=== PATIENT | male | born 1960 | race Caucasian/White ===

== ENCOUNTER → 2017-11-07 | Day surgery (SDC) | payer BC ==
[~2017-11-07] MED LIST: ASPI81TA50 PO; IV RINGERS SOLUTION,LACTATED 1,000 ML IV SCH; LIDOCAINE 1% Multi-Dose 20 ML VIAL. ONE; LIDOCAINE 1% PF 2 ML VIAL. ID PRN; MULT1TAB52 PO; OMEP20CA9 PO; ONDANSETRON PF 4 MG/2 ML VIAL. IV PRN; PROPOFOL 10,000 MCG/ML (20ML) VIAL IV ONE; PROPOFOL 20 ML IV ONE
[2017-11-07 14:57] VITALS: BP 121/74
== END ==
LOC: SURG 11:26
PROVIDERS: ATTEND Internal Medicine Gastroenterology
DX: Z12.11 Encounter for screening for malignant neoplasm of colon (principal); Z80.0 Family history of malignant neoplasm of digestive organs; K63.89 Other specified diseases of intestine; K21.9 Gastro-esophageal reflux disease without esophagitis; Z87.39 Personal history of other diseases of the musculoskeletal system and connective tissue
CPT/HCPCS: 45378; J2704; J7120

== ENCOUNTER 2019-06-15 14:27 | Inpatient (IN) | payer BC ==
[~2019-06-15] VITALS: Ht 180.3 cm; Wt 93.2 kg
[~2019-06-15 14:27] MED LIST changes: -IOHEXOL 240 MG/ML 50ML VIAL. PO ONE; -IOHEXOL 300 MG/ML 75 ML VIAL. IV ONE; -OMEP40CA45 PO
[2019-06-15] MEDS: IV NORMAL SALINE 1,000ML 1,000 ML IV SCH (14:45)
[2019-06-15] MEDS ORDERED: ONDANSETRON PF 4 MG/2 ML VIAL. IVP PRN (14:45)
[2019-06-15] MEDS: MORPHINE SULFATE 4 MG/ML DISP.SYRIN. IV PRN ×2 (14:54→18:40)
[2019-06-15 14:59] LABS: BASO % 1 % (0-3); EOS % 0 % (0-3); HEMOGLOBIN 16.7 g/dL (13.0-17.5); LYMPH # 0.8 x10^3/uL (1.0-4.8); LYMPH % 8 % (24-48); MEAN CORPUSCULAR HEMOGLOBIN 30 pg (25-35); MEAN CORPUSCULAR HGB CONC 35 g/dL (31-37); MEAN CORPUSCULAR VOLUME 87 fL (79-100); MONO # 0.9 x10^3/uL (0.0-1.1); MONO % 9 % (0-9); NEUT # 8.1 x10^3uL (1.8-7.7); NEUT % 83 % (31-73); PLATELET COUNT 246 x10^3/uL (140-400); RED BLOOD COUNT 5.49 x10^6/uL (4.30-5.70); RED CELL DISTRIBUTION WIDTH 13.9 % (11.5-14.5); WHITE BLOOD COUNT 9.8 x10^3/uL (4.0-11.0)
[2019-06-15 15:04] VITALS: BP 118/81
[2019-06-15 15:11] LABS: ALBUMIN 3.8 g/dL (3.4-5.0); ALBUMIN/GLOBULIN RATIO 0.9 (1.0-1.7); CALCIUM 9.1 mg/dL (8.5-10.1); POTASSIUM 3.7 mmol/L (3.5-5.1); TOTAL BILIRUBIN 0.6 mg/dL (0.2-1.0); TOTAL PROTEIN 8.1 g/dL (6.4-8.2)
[2019-06-15 16:20] LABS: BACTERIA,URINE FEW /HPF (0-FEW); BILIRUBIN,URINE NEG (NEG); CLARITY,URINE CLEAR; COLOR,URINE YELLOW; GLUCOSE,URINE NEG (NEG); NITRITE,URINE NEG (NEG); RBC,URINE RARE /HPF (0-2); UROBILINOGEN,URINE 0.2 mg/dL (0.2 mg/dL)
[2019-06-15 17:11] VITALS: BP 115/72
--- NOTE | 2019-06-15 17:25 | NUR ---
The patient, DANYELLE CONLEY, 59 y/o, M admitted by BROCK VICTORIA MD, was given written information regarding hospital policies, unit procedures and contact persons. Valuables were checked and logged. Pt arrived via wheelchair after getting an outpatient CT scan, showed SBO. IV already in place. IV morphine and zofran given per MD orders. NG tube placed per order, pt immediately began vomiting and having output per NG tube NG tube placed. Placed on intermittent suction. Pt is alert and oriented x4. Complains of abdominal pain. Denies vomiting, but did have nausea last night. at bedside. Pt up independently. WCTM.
[2019-06-15] MEDS ORDERED: PROCHLORPERAZINE 10 MG/2 ML VIAL. IV PRN (18:30)
[2019-06-15] MEDS: PHENOL ORAL SPRAY 177ML BOTTLE. PO PRN (18:44)
[2019-06-15 23:20] VITALS: BP 99/58
[2019-06-16] MEDS: IV NORMAL SALINE 1,000ML 1,000 ML IV SCH ×3 (00:55→20:45)
[2019-06-16] MEDS: PHENOL ORAL SPRAY 177ML BOTTLE. PO PRN (05:07)
[2019-06-16 05:24] VITALS: BP 112/65
[2019-06-16 07:00] LABS: BASO # 0.1 x10^3/uL (0.0-0.2); BASO % 1 % (0-3); EOS # 0.1 x10^3/uL (0.0-0.7); EOS % 1 % (0-3); HEMATOCRIT 43.3 % (39.0-53.0); HEMOGLOBIN 14.8 g/dL (13.0-17.5); LYMPH # 1.2 x10^3/uL (1.0-4.8); LYMPH % 13 % (24-48); MEAN CORPUSCULAR HEMOGLOBIN 30 pg (25-35); MEAN CORPUSCULAR HGB CONC 34 g/dL (31-37); MEAN CORPUSCULAR VOLUME 88 fL (79-100); MONO # 1.1 x10^3/uL (0.0-1.1); MONO % 12 % (0-9); NEUT # 6.6 x10^3uL (1.8-7.7); NEUT % 73 % (31-73); PLATELET COUNT 227 x10^3/uL (140-400); RED CELL DISTRIBUTION WIDTH 13.9 % (11.5-14.5)
[2019-06-16 07:11] LABS: CALCIUM 8.5 mg/dL (8.5-10.1); POTASSIUM 3.7 mmol/L (3.5-5.1)
[2019-06-16] MEDS ORDERED: PANTOPRAZOLE 40 MG TABLET. PO SCH (07:30)
[2019-06-16] MEDS ORDERED: METOCLOPRAMIDE HCL 10 MG/2 ML VIAL. IVP ONE (09:15)
[2019-06-16] MEDS: MORPHINE SULFATE 4 MG/ML DISP.SYRIN. IV PRN ×2 (10:28→20:28)
[2019-06-16] MEDS ORDERED: ENOXAPARIN 40 MG/0.4 ML SYRINGE. SQ SCH (11:00)
[2019-06-16 11:10] VITALS: BP 110/54
--- NOTE | 2019-06-16 11:55 | PN ---
DATE: SUBJECTIVE: A 59-year-old gentleman came in with small-bowel obstruction released by CAT scan. He says he has had some small stools coming out. He has had no nausea or vomiting. Presently, he is feeling better overall. He is ambulatory. PHYSICAL EXAMINATION: VITAL SIGNS: 112/65, respiratory rate 16, pulse 86 and 98.5. GENERAL: The patient is alert and oriented. LUNGS: Diminished, but clear. CARDIOVASCULAR: Stable. ABDOMEN: Soft. He does have a ventral hernia. There are a few tickles of bowel sounds in there, so he is making fairly good situation there. EXTREMITIES: No clubbing, cyanosis, nor edema. NEUROLOGIC: Alert and oriented x 3. Speech fluent, spontaneous, appropriate. We will get a chest x-ray. He has been coughing just to make sure there is nothing in the lung thoracic area causing any problems down below. He has not had any previous surgeries as well. IMPRESSION: Small-bowel obstruction with improvement. PLAN: Continue NG tube in place, some IV medications and make sure that he continues to be monitored carefully. BROCK VICTORIA MD DR: SHWETHA/loyd JOB#: [id number] / [id number]
--- NOTE | 2019-06-16 12:31 | RAD ---
Examination: PORTABLE CHEST 1V History: Cough Comparison/Correlation: None Findings: Portable frontal view of chest was obtained. Enteric tube terminates within the stomach. Heart size normal. No pneumothorax. No definite infiltrate. Minimal left basilar linear atelectasis noted. Impression: No focal infiltrate. Electronically signed by: Antoine Matamoros MD (06/16/2019 12:28 PM) [facility]
[2019-06-16 13:40] LABS: GASTRIC OB PAT POSITIVE (NEG)
[2019-06-16 15:00] VITALS: BP 132/85
[2019-06-16 19:55] VITALS: BP 133/88
[2019-06-16 22:36] VITALS: BP 119/76
[2019-06-17] MEDS: IV NORMAL SALINE 1,000ML 1,000 ML IV SCH
[2019-06-17 06:06] VITALS: BP 135/89
[2019-06-17 07:30] LABS: CALCIUM 8.6 mg/dL (8.5-10.1); CREATININE 1.1 mg/dL (0.7-1.3); POTASSIUM 3.4 mmol/L (3.5-5.1)
[2019-06-17] MEDS ORDERED: PANTOPRAZOLE IV 40 MG VIAL. IVP SCH (07:30)
[2019-06-17 07:53] LABS: FECAL OB PT NEGATIVE (NEG)
--- NOTE | 2019-06-17 08:30 | NUR ---
Patient is alert and oriented x4. Denies nausea or pain. Is hoping to get NG tube out. NG output has slowed. Hypoactive bowel sounds on left side of abdomen. Heart tones irregular, placed tele on patient, pt SA. Dr Naranjo notified, EKG ordered. Held lovenox since gastric occult was positive. WCTM.
--- NOTE | 2019-06-17 09:39 | NUR ---
NG tube pulled, patient tolerated well. CLD diet started, pt informed to start slow. WCTM.
[2019-06-17 11:19] VITALS: BP 132/84
[2019-06-17] MEDS ORDERED: OMEP40CA45 PO (11:43)
--- NOTE | 2019-06-17 12:11 | NUR ---
Dr Naranjo wants to schedule outpatient upper GI with SBFT for tomorrow, pt is discharging today. No one here to schedule due to holiday. Dr Naranjo notified. Instructed to tell pt to remain NPO after midnight and have someone from here call in the morning to schedule. Facesheet and note given to Nursing [employer] to pass along to have this schedule tomorrow.
--- NOTE | 2019-06-17 12:22 | RAD ---
ACUTE ABDOMEN SERIES 06/17/2019 10:59 AM INDICATION: Small bowel obstruction COMPARISON: CT abdomen/pelvis 06/15/2019 TECHNIQUE: Single view of the chest, upright view of the abdomen and 2 supine views of the abdomen are provided. FINDINGS/ IMPRESSION: 1. There is no acute cardiac pulmonary process. Lungs are clear. Cardiac mediastinal silhouette is within normal limits. No pleural effusions, pulmonary vascular congestion or pneumothorax. Junk changes are noted at the right first costosternal articulation. 2. There is no free intraperitoneal air. Retained oral contrast is identified within the right colon. Distended small bowel loops are identified in the left upper quadrant abdomen presumed to represent jejunal bowel loops measuring up to 3.5 cm. Distal colon is decompressed. No pneumoperitoneum. Findings most favor small bowel obstruction secondary to enteritis, not significantly changed. Continued follow-up may be of benefit. 3. No suspicious osseous normality. Electronically signed by: Janice Alvarez MD (06/17/2019 12:19 PM) [facility]
--- NOTE | 2019-06-17 12:55 | NUR ---
Patient is discharging, agrees with discharge plan. Instructed to call at 0900 tomorrow if he has not heard about a time for his EGD. Pt given 1-S nursing station number. IV out, tele off.
--- NOTE | 2019-06-17 22:51 | EKG ---
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
--- NOTE | 2019-06-23 18:56 | DS ---
DATE OF DISCHARGE: 06/17/2019 HOSPITAL COURSE: The patient came in with severe abdominal pain. The patient was found to have a small-bowel obstruction. As a result of that, the patient was admitted to the hospital, obviously and monitored carefully. An NG tube was placed down and did get quite a bit of fluid back out of his intestine. However, the patient continued to make good progress. Consultation over the phone with surgery felt the patient would do best by just keeping the NG tube in place. The patient made good progress. The patient did have some gastric occult blood. He will be followed up by GI, Dr. Burger as an outpatient. The patient did have a clearing of the small-bowel obstruction. He had a bowel movement. He was able to eat and drink without any complication. He was discharged home for followup. IMPRESSION: Small-bowel obstruction, hematochezia. PLAN: As above. Continue to monitor the patient as an outpatient. He will stay on a very soft diet for now and then follow up with Dr. Burger as an outpatient. BROCK VICTORIA MD DR: SHWETHA/loyd JOB#: [id number] / [id number]
== END 2019-06-17 13:01 | disposition home or self-care (01) | DRG 389 ==
LOC: 1 SOUTH 14:27
PROVIDERS: ADMIT Family Medicine; ATTEND Family Medicine
PROC: 0D9670Z Drainage of Stomach with Drainage Device, Via Natural or Artificial Opening (ICD-10-PCS; principal; 2019-06-15)
DX: K56.609 Unspecified intestinal obstruction, unspecified as to partial versus complete obstruction (principal); K92.1 Melena; K21.9 Gastro-esophageal reflux disease without esophagitis; Z82.49 Family history of ischemic heart disease and other diseases of the circulatory system; Z80.0 Family history of malignant neoplasm of digestive organs
CPT/HCPCS: 36415; 71045; 74022; 80048; 80053; 81001; 82271; 82274; 85025; 93005; C9113; J0780; J1650; J2270; J2405; J2765; J7030

== ENCOUNTER → 2019-06-15 | Outpatient (CLI) | payer BC ==
[2017-11-07 14:57] VITALS: BP 121/74
[~2019-06-15] MED LIST changes: +IOHEXOL 240 MG/ML 50ML VIAL. PO ONE; +IOHEXOL 300 MG/ML 75 ML VIAL. IV ONE; -IV RINGERS SOLUTION,LACTATED 1,000 ML IV SCH; -LIDOCAINE 1% Multi-Dose 20 ML VIAL. ONE; -LIDOCAINE 1% PF 2 ML VIAL. ID PRN; +OMEP20CA16 PO; -OMEP20CA9 PO; +OMEP40CA45 PO; -ONDANSETRON PF 4 MG/2 ML VIAL. IV PRN; -PROPOFOL 10,000 MCG/ML (20ML) VIAL IV ONE; -PROPOFOL 20 ML IV ONE
--- NOTE | 2019-06-15 13:47 | RAD ---
CT scan of the abdomen and pelvis without and with contrast 06/15/2019 CLINICAL HISTORY: Abdominal pain and hematuria. Nausea and fever. Gastroesophageal reflux. TECHNIQUE: Contiguous, 5 mm axial sections were obtained through the abdomen and pelvis without and with use of intravenous contrast. Oral contrast was administered prior to imaging. 75 cc of Omnipaque 300 were administered intravenously during this examination. One or more of the following individualized dose reduction techniques were utilized for this study: 1. Automated exposure control. 2. Adjustment of the mA and/or kV according to patient size. 3. Use of iterative reconstruction technique. FINDINGS: Images through the lung bases are within normal limits. The unenhanced CT images demonstrate no renal, ureteral or bladder calculus. The liver, spleen, pancreas, and adrenal glands are within normal limits. Rounded low-attenuation lesions are seen involving both kidneys on the postcontrast images which demonstrate 3 mm to 8 mm in size. These likely represent cysts. The abdominal aorta tapers normally. The gallbladder is contracted. No free fluid or free air is seen within the abdomen. Air and stool are seen throughout the colon. The appendix is well-visualized and is within normal limits. Dilated fluid and air-filled mid/distal jejunal and proximal ileal loops are seen throughout the mid/lower abdomen. The mid/distal ileum is normal in caliber as is the colon. These findings are consistent with a small bowel obstruction. The transition point is not well-visualized on this study but appears to be within the right mid abdomen. Images through the pelvis demonstrate the urinary bladder distended with urine. The prostate gland is mildly enlarged likely related to BPH. No free fluid is seen. Degenerative changes are seen involving the lower thoracic and throughout the lumbar spine along with both hips. IMPRESSION: Findings are seen consistent with a small bowel obstruction. Electronically signed by: Keo Calix MD (06/15/2019 1:44 PM) [id number]
== END | disposition home or self-care (01) ==
LOC: CT 11:39
PROVIDERS: ATTEND Nurse Practitioner Adult Health
DX: R10.84 Generalized abdominal pain (principal); R10.33 Periumbilical pain; K21.9 Gastro-esophageal reflux disease without esophagitis
CPT/HCPCS: 74178; Q9966; Q9967

== ENCOUNTER → 2019-06-18 | Outpatient (CLI) | payer BC ==
[2019-06-17 11:19] VITALS: BP 132/84
[~2019-06-18] MED LIST changes: +OMEP40CA45 PO
--- NOTE | 2019-06-18 09:55 | RAD ---
2 views of the abdomen 06/18/2019 INDICATION: Evaluate for small bowel obstruction. Presence of enteric contrast. COMPARISON STUDY: CT the abdomen and pelvis June 15, 2019 Discussion: The bowel gas pattern is nonspecific and nonobstructive. Previously administered enteric contrast is seen in the transverse colon, and to a lesser degree in the rectum. No gross pneumoperitoneum. No acute osseous changes are seen. IMPRESSION: 1. Nonspecific nonobstructive bowel gas pattern 2. Residual enteric contrast in the transverse colon, and to a lesser degree the rectum Electronically signed by: Ethan Barrett MD (06/18/2019 9:52 AM) [id number]
== END | disposition home or self-care (01) ==
LOC: RAD 09:13
PROVIDERS: ATTEND Family Medicine
DX: K56.609 Unspecified intestinal obstruction, unspecified as to partial versus complete obstruction (principal)
CPT/HCPCS: 74018

== ENCOUNTER → 2019-06-19 | Outpatient (CLI) | payer BC ==
[2019-06-17 11:19] VITALS: BP 132/84
--- NOTE | 2019-06-19 14:35 | RAD ---
Double contrast upper GI study to include a small bowel follow-through 06/19/2019 CLINICAL HISTORY: History of partial small bowel obstruction. Abdominal pain. TECHNIQUE: A double contrast upper GI study was performed under fluoroscopic control. This was continued as a small bowel follow-through study which was performed under radiographic control. The total fluoroscopic time is 1.6 minutes. 6 digital spot radiographs were obtained. FINDINGS: Comparison is made to the patient's CT scan of the abdomen and pelvis dated 06/15/2019. An AP digital radiograph of the abdomen was obtained as a rail specialist. This demonstrates a nonobstructive bowel gas pattern. A moderate amount of stool is seen throughout the colon. No radiopaque calculus is seen. Degenerative changes are seen involving the lumbar spine. The mucosal pattern of the esophagus, stomach and duodenum is within normal limits. Esophageal motility is within normal limits. No area of ulceration is seen. There is a very small sliding hiatal hernia. No gastroesophageal reflux is noted. The mucosal pattern of the jejunum, ileum and terminal ileum is within normal limits. Mildly dilated mid/distal jejunal and proximal ileal loops are seen within the abdomen. This appears improved when compared to the patient's CT scan. The distal ileum is normal in caliber. The small bowel transit time is within normal limits. No transition point in the caliber of the bowel is visualized. The cecum is in its normal location within the right lower quadrant abdomen. No extrinsic mass effect upon the small bowel is seen. IMPRESSION: 1. Very small sliding hiatal hernia. 2. Mildly dilated mid/distal jejunal and proximal ileal loops are seen within the abdomen. This appears improved when compared to the patient's recent CT scan. No transition point in the caliber of the bowel is seen. The small bowel transit time is within normal limits. Electronically signed by: Keo Calix MD (06/19/2019 2:32 PM) [id number]
== END | disposition home or self-care (01) ==
LOC: DXRAD 08:03
PROVIDERS: ATTEND Family Medicine
DX: K44.9 Diaphragmatic hernia without obstruction or gangrene (principal)
CPT/HCPCS: 74245

== ENCOUNTER → 2019-10-16 | Outpatient (CLI) | payer BC ==
--- NOTE | 2019-10-16 08:56 | RAD ---
Examination: ABDOMEN LTD History: Diaphragmatic hernia. No obstruction. Comparison/Correlation: 05/19/2019 CT abdomen and pelvis without and with contrast Findings: Ultrasound examination of the epigastric, midabdomen was performed at the site of interest. Abdominal wall is unremarkable. No diaphragmatic hernia identified at this site. No herniated small bowel loops identified. No loculated collections. Incidental note is made of fatty infiltration of the liver. Impression: No evidence of diaphragmatic hernia on imaging of the epigastric region at the site of interest. If suspicion persists, further evaluation with CT examination would be recommended. Electronically signed by: Antoine Matamoros MD (10/16/2019 8:53 AM) [id number]
== END | disposition home or self-care (01) ==
LOC: US 07:41
PROVIDERS: ATTEND Nurse Practitioner Adult Health
DX: K76.0 Fatty (change of) liver, not elsewhere classified (principal)
CPT/HCPCS: 76705